=== PATIENT | female | born 1985 ===

== ENCOUNTER 2017-12-05 18:00 | Emergency (ER) | payer BC ==
--- NOTE | 2017-12-05 18:55 | EDM.PDOC ---
ED HPI GENERAL MEDICAL PROBLEM - General Chief Complaint: Skin Complaint Stated Complaint: FINGER SWOLLEN POSSIBLE CELULITUCE Time Seen by Provider: 12/05/17 18:55 Source of Information: Reports: Patient - History of Present Illness INITIAL COMMENTS - FREE TEXT/NARRATIVE: Patient is here for reevaluation for an abscess to her right middle finger. She states that she was seen in the clinic for this 2 days ago and started on Keflex and has had no improvement whatsoever perhaps some worsening. She notes redness and erythema, she states there has been no drainage from here. She is feeling healthy, denies any fever or chills. No chronic medical conditions. Patient is quite concerned as she is leaving the country to go to [place] tomorrow. Right Hand Pain Score (Numeric/FACES): 3 - Related Data Allergies Allergy/AdvReac Type Severity Reaction Status Date / Time No Known Allergies Allergy Verified 12/05/17 19:10 Home Meds: Home Meds Minocycline HCl 100 mg PO BID #14 tablet 12/05/17 [Rx] Past Medical History - Past Health History Medical/Surgical History: Denies Medical/Surgical History Social & Family History - Tobacco Use Smoking Status *Q: Never Smoker Second Hand Smoke Exposure: No ED ROS GENERAL - Review of Systems Review Of Systems: See Below Constitutional: Denies: Fever, Chills, Malaise, Weakness Cardiovascular: Reports: No Symptoms Endocrine: Reports: No Symptoms Musculoskeletal: Reports: No Symptoms Skin: Reports: Other (Abscess to right middle finger) Neurological: Reports: No Symptoms ED EXAM, SKIN/RASH Exam: See Below Exam Limited By: No Limitations General Appearance: Alert, WD/WN, No Apparent Distress Cardiovascular: Other (Capillary refill less than 2 seconds.) Peripheral Pulses: 2+: Radial (R) Neurological: Alert, Oriented Psychiatric: Normal Affect, Normal Mood Skin: Warm, Dry, Intact, Other (Paronychia to right middle finger with mild surrounding warmth, erythema and swelling. This is firm to the touch and quite tender to the patient.) Course - Vital Signs Last Recorded V/S: Last Vital Signs Temp 98.5 F 12/05/17 18:07 Pulse 93 12/05/17 18:07 Resp 17 12/05/17 18:07 BP 138/89 12/05/17 18:07 Pulse Ox 100 12/05/17 18:07 - Re-Assessments/Exams Free Text/Narrative Re-Assessment/Exam: Acute paronychia to the right middle finger, this has not improved with Keflex. There is really no fluid collection to drain at present. Question if possible MRSA but no drainage to culture of this. Will start patient on minocycline. Patient will be leaving the country, she will be traveling with an M.D. An 18- gauge needle and ChloraPrep was given to patient and discussed proper drainage of this if this should become larger or show signs of purulent effusion. Patient verbalized understanding. Certainly if patient's symptoms should worsen or if she should have fever greater than 101F she will need to seek medical care in [place] and she is in agreement with this. 12/05/17 19:53 Departure - Departure Time of Disposition: 19:07 Disposition: Home, Self-Care 01 Condition: Good Clinical Impression: Paronychia of finger of right hand - Discharge Information Prescriptions: Minocycline HCl 100 mg PO BID #14 tablet Instructions: Paronychia, [id number] Referrals: Juanita Groves MD [Primary Care Provider] - Forms: ED Department Discharge Additional Instructions: Keep area clean and dry. Monitor for any worsening and redness. Minocycline has been sent to pharmacy, I strongly recommend that you take a probiotic with this to help prevent diarrhea. Eating yogurt would help as well. We have discussed how to drain this if absolutely necessary. If significant worsening I recommend that you see a healthcare provider in [place].
== END 2017-12-05 19:20 | disposition home or self-care (01) ==
LOC: JD.ED 18:00
DX: L03.011 Cellulitis of right finger (principal)
CPT/HCPCS: 99283